=== PATIENT | female | born 1995 | race Hispanic/Latino ===

== ENCOUNTER → 2018-03-21 | Outpatient (CLI) | payer OTHER ==
--- NOTE | 2018-03-22 08:27 | Diagnostic Imaging Report ---
#[id number] - USBRECOMLT ULTRASOUND OF THE LEFT BREAST : 03/21/2018 No prior exams were available for comparison. Color flow and real-time ultrasound were performed on the entire left breast with scanning in all four quadrants, retroareolar region and the left axilla. -There is no cystic or solid lesion identified. IMPRESSION: NEGATIVE There is no sonographic evidence of malignancy. Follow-up with ACR/ACS guidelines. Dexter Nicole Jr., D.O. cw/:03/21/2018 16:52:56 Train Director: CLOTILDE PERSON RDMS, [facility] letter sent: Normal Exam Ultrasound BI-RADS: 1 Negative
== END ==
LOC: US 15:45
PROVIDERS: ATTEND Internal Medicine
DX: N60.12 Diffuse cystic mastopathy of left breast (principal)